=== PATIENT | male | born 1975 | race Caucasian/White ===

== ENCOUNTER 2023-03-07 19:13 | Emergency (ER) | payer OTHER ==
[2023-03-07] MEDS ORDERED: Ondansetron PF 4 MG/2 ML Vial ONE (20:47)
[2023-03-07] MEDS ORDERED: Morphine 4 MG/ML VIAL ONE (20:47)
[2023-03-07] MEDS ORDERED: Ketorolac Tromethamine 30 MG/ML VIAL ONE (22:53)
[2023-03-08] MEDS ORDERED: Morphine 4 MG/ML VIAL ONE (00:47)
== END 2023-03-08 01:02 | disposition home or self-care (01) ==
LOC: ERS 19:13
DX: M54.50 Low back pain, unspecified (principal); G89.29 Other chronic pain; I10 Essential (primary) hypertension; E11.9 Type 2 diabetes mellitus without complications; Z86.718 Personal history of other venous thrombosis and embolism; Z87.891 Personal history of nicotine dependence
CPT/HCPCS: 96374; 96375; 96376; J1885; J2270; J2405

== ENCOUNTER 2023-03-25 09:29 | Outpatient (CLI) | payer OTHER | END 2023-03-25 09:30 | disposition home or self-care (01) | LOC: TBSIIMAG 09:29 | PROVIDERS: ATTEND Family Medicine | DX: M51.16 Intervertebral disc disorders with radiculopathy, lumbar region (principal); M47.26 Other spondylosis with radiculopathy, lumbar region; M48.061 Spinal stenosis, lumbar region without neurogenic claudication; M51.27 Other intervertebral disc displacement, lumbosacral region; M47.817 Spondylosis without myelopathy or radiculopathy, lumbosacral region; M48.07 Spinal stenosis, lumbosacral region | CPT/HCPCS: 72148 ==

== ENCOUNTER 2023-08-25 14:29 | Outpatient (CLI) | payer OTHER ==
[2023-08-25 15:20] LABS: Hematocrit 44.5 % (38.8-50.0); Hemoglobin 15.8 g/dL (13.5-17.5); Mean Corpuscular HGB CONC 35.5 g/dL (32.0-36.0); Mean Corpuscular Hemoglobin 30.6 pg (27.0-33.0); Mean Corpuscular Volume 86.1 fl (81.2-95.1); Mean Platelet Volume 10.6 fl (7.4-10.4); Platelet Count 191 10x3/uL (150-450); RBC Distribution Width 12.4 % (11.5-14.5); Red Blood Cell (RBC) Count 5.17 10x6/uL (4.32-5.72); White Blood Cell (WBC) Count 8.9 10x3/uL (3.5-10.5)
[2023-08-25 15:29] LABS: Anion Gap 16 mmol/L (10-20); BUN (Urea Nitrogen) 14 mg/dL (8.9-20.6); Calc. Creatinine Clearance 0 mL/min (70-130); Carbon Dioxide 21 mmol/L (22-29); Chloride 100 mmol/L (98-107); Estimated GFR 69; Glucose 315 mg/dL (70-105); Potassium 3.9 mmol/L (3.5-5.1); Sodium 133 mmol/L (136-145)
== END 2023-08-25 14:30 | disposition home or self-care (01) ==
LOC: LABBT 14:29
PROVIDERS: ATTEND Neurological Surgery
DX: Z01.818 Encounter for other preprocedural examination (principal); M54.16 Radiculopathy, lumbar region
CPT/HCPCS: 80048; 85027; 93005; 93010

== ENCOUNTER 2023-08-31 06:25 | Day surgery (SDC) | payer OTHER ==
[2023-08-25 14:56] VITALS: BMI 38.7
[2023-08-31] MEDS ORDERED: EPINEPHrine 1 MG/ML AMP ONE (06:38)
[2023-08-31] MEDS ORDERED: Vancomycin 1 GM VIAL ONE (06:38)
[2023-08-31] MEDS ORDERED: Bupivacaine PF 0.5% 30 ML VIAL ONE (06:38)
[2023-08-31] MEDS ORDERED: fentaNYL PF 100 MCG/2 ML SYRINGE ONE (07:22)
[2023-08-31] MEDS ORDERED: HYDROmorphone 0.5 MG/0.5 ML SYRINGE ONE (07:22)
[2023-08-31] MEDS ORDERED: Sodium Chloride 0.9% 100 ML ONE (07:43)
[2023-08-31] MEDS ORDERED: CEFAZOLIN 2 GM VIAL ONE (07:43)
[2023-08-31] MEDS ORDERED: SUGAMMADEX SODIUM 200 MG/2 ML VIAL ONE (08:04)
[2023-08-31] MEDS ORDERED: PROPOFOL 200 MG/20 ML VIAL ONE (08:05)
[2023-08-31] MEDS ORDERED: Lidocaine 1% PF 5 ML VIAL ONE (08:05)
[2023-08-31] MEDS ORDERED: PHENYLEPHRINE-NS 100 MCG/ML 10 ML SYRINGE ONE (08:05)
[2023-08-31] MEDS ORDERED: Rocuronium Bromide 10 MG/ML (10ML VIAL) ONE (08:05)
[2023-08-31] MEDS ORDERED: Ondansetron PF 4 MG/2 ML Vial ONE (08:05)
[2023-08-31] MEDS ORDERED: Metoclopramide HCl 10 MG/2 ML VIAL ONE (08:05)
[2023-08-31] MEDS ORDERED: Thrombin 5000 UNITS/5 ML VIAL ONE (08:50)
[2023-08-31] MEDS ORDERED: fentaNYL 50 mcg/mL 1 mL Vial ONE ×2 (09:47→10:01)
== END 2023-08-31 11:40 | disposition home or self-care (01) ==
LOC: SDC 06:25
PROVIDERS: ATTEND Neurological Surgery
PROC: 00NY0ZZ Release Lumbar Spinal Cord, Open Approach (ICD-10-PCS; principal; 2023-08-31)
DX: M51.17 Intervertebral disc disorders with radiculopathy, lumbosacral region (principal)
CPT/HCPCS: 36416; C1713; J0171; J1170; J2405; J2704; J2765; J3010; J3370; J3490; S0020